=== PATIENT | male | born 1940 | race Caucasian/White ===

== ENCOUNTER 2017-12-07 13:51 | Emergency (ER) | payer MEDICARE, OTHER ==
[~2017-12-07] VITALS: Ht 185.4 cm; Wt 75.0 kg
[2017-12-07] MEDS ORDERED: DOXY100C43 PO (15:39)
[2017-12-07] MEDS ORDERED: CEPH-572 PO (15:39)
[2017-12-07] MEDS ORDERED: doxycycline hyclate 100mg tablet.DR PO ONE (15:40)
[2017-12-07] MEDS ORDERED: bacitracin 15gm ointment TP ONE (15:40)
[2017-12-07] MEDS ORDERED: CefTRIAXone 1000mg IM Kit (w/lidocaine diluent) IM ONE (15:40)
[2017-12-07] MEDS ORDERED: TETanus/Pertussis (Acell)/Diphther VAC/PF (Tdap-Adult) 0.5ml syringe IM ONE (15:40)
[2017-12-07 16:07] VITALS: BP 134/81
== END 2017-12-07 16:02 | disposition home or self-care (01) ==
LOC: ER 13:54
DX: L03.113 Cellulitis of right upper limb (principal)
CPT/HCPCS: 90471; 90715; 96372; 99284; J0696